=== PATIENT | female | born 2000 | race Two or more races ===

== ENCOUNTER 2021-06-25 14:24 | Emergency (ER) | payer SELFPAY ==
[~2021-06-25] VITALS: Ht 162.6 cm; Wt 74.2 kg
--- NOTE | 2021-06-25 15:16 | ED.ADGEN ---
Past Medical History Past Surgical History: No Surgical History General Adult EDM: Chief Complaint: VAGINAL BLEEDING HPI: HPI: Patient is a G2, P0 20 year old female coming in for vaginal bleeding. Patient had a positive home test about 1 week ago. States she is having bleeding, has not seen any tissue, and having suprapubic cramping. Denies any history of ovarian cyst, normally has regular periods. LMP 27. Patient has a history of a prior miscarriage at about 6 to 7 weeks gestational age. Denies any recent intercourse or vaginal discharge Review of Systems: Review of Systems: All other systems within normal limits except for as noted in the HPI Current Medications: Current Medications Medications (Trade) Dose Ordered Sig/Pako Start Time Stop Time Status Last Admin Dose Admin Acetaminophen (Tylenol) 1,000 mg 1X ONCE 06/25/21 15:45 06/25/21 15:46 DC 06/25/21 15:42 1,000 MG Allergies: Allergies: Allergies Coded Allergies Type Severity Reaction Last Updated Verified No Known Drug Allergies 06/25/21 No Physical Exam: PE: Constitutional: Well developed, well nourished, no acute distress, non-toxic appearance. [] HENT: Normocephalic, atraumatic, bilateral external ears normal, nose normal. [] Eyes: PERRLA, conjunctiva normal, no discharge. [] Neck: No rigidity, supple, no stridor. [] Cardiovascular: Regular rate and rhythm, brisk cap refill [] Lungs & Thorax: Non labored symmetric respirations, no tachypnea or respiratory distress [] Abdomen: Soft, nondistended, low suprapubic tenderness without guarding or rebound.. Skin: Warm, dry, no erythema, no rash. [] Back: Unremarkable Extremities: No deformities, range of motion grossly intact, no lower extremity edema [] Neurologic: Alert and oriented X 3, no focal deficits noted. [] Psychologic: Affect normal, judgement normal, mood normal. [] Current Patient Data: Labs: Laboratory Tests Test 06/25/21 14:38 06/25/21 15:24 Urine Collection Type Unknown Urine Color (Auto) Red Urine Turbidity Bloody Urine pH (Auto) (<5.0-8.0) Urine Specific [place] (1.000-1.030) Urine Protein (Auto) mg/dL (Negative) Urine Glucose (Auto)(UA) mg/dL (Negative) Urine Ketones (Auto) mg/dL (Negative) Urine Blood (Auto) (Negative) Urine Nitrite (Negative) Urine Bilirubin (Auto) (Negative) Urine Urobilinogen (Auto) mg/dL (Normal) Urine Leukocyte Esterase (Auto) (Negative) Urine RBC Tntc /HPF (0-2) Urine WBC 5-10 /HPF (0-4) Urine Squamous Epithelial Cells Many /LPF Urine Bacteria Moderate /HPF (0-FEW) Urine Mucus Marked /LPF White Blood Count 8.9 x10^3/uL (4.0-11.0) Red Blood Count 4.27 x10^6/uL (3.50-5.40) Hemoglobin 12.3 g/dL (12.0-15.5) Hematocrit 37.3 % (36.0-47.0) Mean Corpuscular Volume 87 fL (79-100) Mean Corpuscular Hemoglobin 29 pg (25-35) Mean Corpuscular Hemoglobin Concent 33 g/dL (31-37) Red Cell Distribution Width 13.7 % (11.5-14.5) Platelet Count 377 x10^3/uL (140-400) Neutrophils (%) (Auto) 62 % (31-73) Lymphocytes (%) (Auto) 31 % (24-48) Monocytes (%) (Auto) 7 % (0-9) Eosinophils (%) (Auto) 1 % (0-3) Basophils (%) (Auto) 0 % (0-3) Neutrophils # (Auto) 5.5 x10^3/uL (1.8-7.7) Lymphocytes # (Auto) 2.7 x10^3/uL (1.0-4.8) Monocytes # (Auto) 0.6 x10^3/uL (0.0-1.1) Eosinophils # (Auto) 0.1 x10^3/uL (0.0-0.7) Basophils # (Auto) 0.0 x10^3/uL (0.0-0.2) Maternal Serum HCG Beta Subunit 5584 mIU/mL (0-5) H Laboratory Tests 06/25/21 15:24 Microbiology 06/25/21 Wet Prep - Final, Complete Vital Signs: Vital Signs Date Time Temp Pulse Resp B/P (MAP) Pulse Ox O2 Delivery O2 Flow Rate FiO2 06/25/21 16:30 91 113/55 (74) 06/25/21 14:25 98.7 18 98 Room Air 98.7 EKG: EKG: [] Heart Score: C/O Chest Pain: No Risk Factors: Risk Factors: DM, Current or recent (<one month) smoker, HTN, HLP, family history of CAD, obesity. Risk Scores: Score 0 - 3: 2.5% MACE over next 6 weeks - Discharge Home Score 4 - 6: 20.3% MACE over next 6 weeks - Admit for Clinical Observation Score 7 - 10: 72.7% MACE over next 6 weeks - Early Invasive Strategies Radiology/Procedures: Radiology/Procedures: [facility] [address] [place] [address] IMAGING REPORT Signed PATIENT: ARSALAN NELSON ACCOUNT: [id number] : 2000 LOCATION: ER AGE: 20 SEX: F EXAM STATUS: PRE ER ORD. PHYSICIAN: ADRIANNE CALIXTO MD REASON: bleeding, 1st trimester PROCEDURE: OB <14 WKS W/TV INDICATION: Reason: bleeding, 1st trimester / Spl. Instructions: / History: COMPARISON: None. TECHNIQUE: Grayscale and color ultrasound images of the pelvis. Transabdominal and transvaginal images obtained. Transvaginal images were needed to better visualize structures that were limited on transabdominal imaging. FINDINGS: Uterus: 86 x 51 x 48 mm. Cystic structure within the endometrial stripe. Measures approximately 12 mm with some low level internal echoes. Suspected nabothian cyst. Right Ovary: 27 x 14 x 13 mm. Left Ovary: 35 x 18 x 17 mm. Vascular flow identified to bilateral ovaries. IMPRESSION: * Hypoechoic structure within the endometrial stripe which could be secondary to an early gestational sac. Recommend follow-up to ensure that there is appropriate development of a pole. There is some low level internal echoes within it but a well-defined pole with heartbeat is not seen at this time. Electronically signed by: Fabiola Madsen MD (06/25/2021 4:12 PM) The [id number] DICTATED and SIGNED BY: FABIOLA MADSEN MD DATE: 06/25/21 1603 [] Course & Med Decision Making: Course & Med Decision Making Pertinent Labs and Imaging studies reviewed. (See chart for details) RUN DATE: 06/25/21 [facility] LAB *LIVE* PAGE 1 RUN TIME: 872 Specimen Inquiry PATIENT: ERIC NELSON ACCT: [id number] LOC: [facility] U: [id number] AGE/SX: ROOM: RE06/25/[address]: ADRIANNE CALIXTO MD : 2000 BED: DIS: STATUS: GRANT MATTSON TLOC: SPEC #: [id number] EMRE: 06/25/21 STATUS: BRYNN REQ #: [id number] RECD: 06/25/21-[address]: ADRIANNE CALIXTO MD SOURCE: VAGINAL ENTR: 06/25/21-[address]: SPDES: ORDERED: WET PREP COMMENTS: Has specimen been collected/obtained? Y Procedure Result WET PREP Final YEAST NONE SEEN TRICHOMONAS NONE SEEN CLUE CELLS NONE SEEN [] Patient has prepubic pain and UA is contaminated with blood, however shows white blood cells and moderate bacteria. We will treat empirically for urinary tract infection since patient was first trimester Zhao Disclaimer: Zhao Disclaimer: This electronic medical record was generated, in whole or in part, using a voice recognition dictation system. Departure Departure Impression: Primary Impression: Vaginal bleeding in patient at less than 20 weeks gestation Additional Impression: UTI in Disposition: HOME / SELF CARE / HOMELESS Condition: STABLE Referrals: DANDRE KAN MD Patient Instructions: Pelvic Rest, Vaginal Bleeding During , First Trimester Additional Instructions: Take medications as prescribed. Return to emergency department if saturating well more than 4 pads per hour. Call Dr. Kan's office tomorrow morning at [phone] to schedule a follow appointment on Saturday for a repeat blood draw for your beta-hCG levels. Your level today 06/25 is 5,584. Scripts Cephalexin (CEPHALEXIN) 500 Mg Tablet 1 TAB PO BID for antibiotic for 5 Days, #10 TAB Prov: ADRIANNE CALIXTO MD 06/25/21 [id number]/Iron Fum/FA/Om3/Dha ( Plus-Dha Combo Pack) 1 Each Combo..pkg 1 TAB PO DAILY for vitamin for 30 Days, #30 TAB 12 Refills Prov: ADRIANNE CALIXTO MD 06/25/21 Problem Qualifiers ADRIANNE CALIXTO MD Jun 25, 2021 15:16
[2021-06-25 15:34] LABS: BASO % 0 % (0-3); EOS # 0.1 x10^3/uL (0.0-0.7); EOS % 1 % (0-3); HEMATOCRIT 37.3 % (36.0-47.0); HEMOGLOBIN 12.3 g/dL (12.0-15.5); LYMPH # 2.7 x10^3/uL (1.0-4.8); LYMPH % 31 % (24-48); MEAN CORPUSCULAR HEMOGLOBIN 29 pg (25-35); MEAN CORPUSCULAR HGB CONC 33 g/dL (31-37); MEAN CORPUSCULAR VOLUME 87 fL (79-100); MONO # 0.6 x10^3/uL (0.0-1.1); MONO % 7 % (0-9); NEUT # 5.5 x10^3/uL (1.8-7.7); NEUT % 62 % (31-73); PLATELET COUNT 377 x10^3/uL (140-400); RED BLOOD COUNT 4.27 x10^6/uL (3.50-5.40); RED CELL DISTRIBUTION WIDTH 13.7 % (11.5-14.5); WHITE BLOOD COUNT 8.9 x10^3/uL (4.0-11.0)
[2021-06-25] MEDS: ACETAMINOPHEN 500 MG TABLET PO ONE (15:42)
[2021-06-25 16:03] LABS: RBC,URINE TNTC /HPF (0-2)
[2021-06-25 16:05] LABS: BACTERIA,URINE MODERATE /HPF (0-FEW)
--- NOTE | 2021-06-25 16:14 | RAD ---
INDICATION: Reason: bleeding, 1st trimester / Spl. Instructions: / History: COMPARISON: None. TECHNIQUE: Grayscale and color ultrasound images of the pelvis. Transabdominal and transvaginal imag es obtained. Transvaginal images were needed to better visualize structures that were limited on tra nsabdominal imaging. FINDINGS: Uterus: 86 x 51 x 48 mm. Cystic structure within the endometrial stripe. Measures approximately 12 mm with some low level inte rnal echoes. Suspected nabothian cyst. Right Ovary: 27 x 14 x 13 mm. Left Ovary: 35 x 18 x 17 mm. Vascular flow identified to bilateral ovaries. IMPRESSION: * Hypoechoic structure within the endometrial stripe which could be secondary to an early gestation al sac. Recommend follow-up to ensure that there is appropriate development of a pole. There is some low level internal echoes within it but a well-defined pole with heartbeat is not seen at this time. Electronically signed by: Pradeep Leon MD (06/25/2021 4:12 PM) [id number]
[2021-06-25 17:45] VITALS: BP 110/55
[2021-06-25] MEDS ORDERED: CEPH500T PO (17:51)
[2021-06-25] MEDS ORDERED: PREN1COM15 PO (17:51)
[2021-06-27 18:23] LABS: GC PROBE Negative (Negative)
== END 2021-06-25 18:10 | disposition home or self-care (01) ==
LOC: ER 14:24
DX: O23.41 Unspecified infection of urinary tract in pregnancy, first trimester (principal); Z3A.00 Weeks of gestation of pregnancy not specified; O46.91 Antepartum hemorrhage, unspecified, first trimester
CPT/HCPCS: 36415; 76801; 76817; 81001; 84702; 85025; 86900; 86901; 87086; 87491; 87591; 99284; Q0111

== ENCOUNTER 2021-06-30 02:46 | Emergency (ER) | payer OTHER ==
[~2021-06-30] VITALS: Ht 162.6 cm; Wt 74.0 kg
[~2021-06-30 02:46] MED LIST: CEPH500T PO; PREN1COM15 PO
--- NOTE | 2021-06-30 03:18 | PHYS DOC ---
Past Medical History Past Surgical History: No Surgical History Smoking Status: Former Smoker Alcohol Use: None General Adult EDM: Chief Complaint: VAGINAL BLEEDING HPI: HPI: Patient is a 20 year old FEMALE who is A1 with LMP 2/ presents with the chief complaint of continued vaginal bleeding and pelvic cramping. Patient has had vaginal bleeding since 06/25. Patient was evaluated in ER on 06/25--- US hypoechogenicity within the endometrial stripe with beta hcg of >5000. Patient woke up at 230hrs passing blood clots and having left pelvic abdominal cramping. Review of Systems: Review of Systems: Constitutional: Denies fever or chills. [] Eyes: Denies change in visual acuity. [] HENT: Denies nasal congestion or sore throat. [] Respiratory: Denies cough or shortness of breath. [] Cardiovascular: Denies chest pain or edema. [] GI: Denies abdominal pain, nausea, vomiting, bloody stools or diarrhea. [] : Denies dysuria. [] positive vaginal bleeding positive pelvic pain Musculoskeletal: Denies back pain or joint pain. [] Integument: Denies rash. [] Neurologic: Denies headache, focal weakness or sensory changes. [] Endocrine: Denies polyuria or polydipsia. [] Lymphatic: Denies swollen glands. [] Psychiatric: Denies depression or anxiety. [] Heart Score: C/O Chest Pain: N/A Risk Factors: Risk Factors: DM, Current or recent (<one month) smoker, HTN, HLP, family history of CAD, obesity. Risk Scores: Score 0 - 3: 2.5% MACE over next 6 weeks - Discharge Home Score 4 - 6: 20.3% MACE over next 6 weeks - Admit for Clinical Observation Score 7 - 10: 72.7% MACE over next 6 weeks - Early Invasive Strategies Allergies: Allergies: Allergies Coded Allergies Type Severity Reaction Last Updated Verified No Known Drug Allergies 06/25/21 No Physical Exam: PE: Constitutional: Well developed, well nourished, no acute distress, non-toxic appearance. [] HENT: Normocephalic, atraumatic, bilateral external ears normal, oropharynx moist, no oral exudates, nose normal. [] Eyes: PERRLA, EOMI, conjunctiva normal, no discharge. [] Neck: Normal range of motion, no tenderness, supple, no stridor. [] Cardiovascular:Heart rate regular rhythm, no murmur [] Lungs & Thorax: Bilateral breath sounds clear to auscultation [] Abdomen: Bowel sounds normal, soft, no tenderness, no masses, no pulsatile masses. [] Skin: Warm, dry, no erythema, no rash. [] Back: No tenderness, no CVA tenderness. [] Extremities: No tenderness, no cyanosis, no clubbing, ROM intact, no edema. [] Neurologic: Alert and oriented X 3, normal motor function, normal sensory function, no focal deficits noted. [] Psychologic: Affect normal, judgement normal, mood normal. [] EKG: EKG: [] Radiology/Procedures: Radiology/Procedures: [] Impression: Uterus: - Size: 7.9 x 5.0 x 4.2 cm - Myometrium: Homogeneous echotexture - Endometrium: 6 mm focal hypoechogenicity within the endometrial stripe, previously 1.3 cm. No visualized pole or yolk sac. - Cervix: Unremarkable Right Ovary: - Size: 3.4 x 1.3 x 1.3 cm - Normal sonographic appearance and blood flow. Left Ovary: - Size: 2.6 x 1.5 x 1.4 cm - Normal sonographic appearance and blood flow. Pelvic Free Fluid: Absent IMPRESSION: Nonspecific 6 mm focal hypoechogenicity within the endometrial stripe, decreased in size compared to prior study. Recommend follow-up ultrasound in 10-14 days. Course & Med Decision Making: Course & Med Decision Making Pertinent Labs and Imaging studies reviewed. (See chart for details) []Patients HB stable. HCG now 200 Patient treated with tylenol for pain. Patient discussed with Dr Orantes. Patient to call office to schedule appointment. Dragon Disclaimer: [email or web address] Disclaimer: This electronic medical record was generated, in whole or in part, using a voice recognition dictation system. Departure Departure Impression: Primary Impression: Threatened Disposition: HOME / SELF CARE / HOMELESS Condition: STABLE Referrals: NO PCP (PCP) DANDRE ORANTES MD Patient Instructions: Threatened Miscarriage, Vaginal Bleeding During , First Trimester HOLLY HOLLOWAY DO Jun 30, 2021 03:18
[2021-06-30 03:32] LABS: BASO % 0 % (0-3); EOS % 0 % (0-3); HEMATOCRIT 37.2 % (36.0-47.0); HEMOGLOBIN 12.2 g/dL (12.0-15.5); LYMPH # 4.2 x10^3/uL (1.0-4.8); LYMPH % 37 % (24-48); MEAN CORPUSCULAR HEMOGLOBIN 29 pg (25-35); MEAN CORPUSCULAR HGB CONC 33 g/dL (31-37); MEAN CORPUSCULAR VOLUME 87 fL (79-100); MONO # 0.8 x10^3/uL (0.0-1.1); MONO % 7 % (0-9); NEUT # 6.3 x10^3/uL (1.8-7.7); NEUT % 55 % (31-73); PLATELET COUNT 451 x10^3/uL (140-400); RED BLOOD COUNT 4.28 x10^6/uL (3.50-5.40); RED CELL DISTRIBUTION WIDTH 13.4 % (11.5-14.5); WHITE BLOOD COUNT 11.4 x10^3/uL (4.0-11.0)
[2021-06-30 03:40] LABS: CREATININE 0.8 mg/dL (0.6-1.0); GFR 90.5; POTASSIUM 3.7 mmol/L (3.5-5.1)
[2021-06-30 03:47] LABS: ALBUMIN 4.2 g/dL (3.4-5.0); ALBUMIN/GLOBULIN RATIO 1.1 (1.0-1.7); TOTAL BILIRUBIN 0.6 mg/dL (0.2-1.0); TOTAL PROTEIN 7.9 g/dL (6.4-8.2)
--- NOTE | 2021-06-30 04:43 | RAD ---
EXAMINATION: US OB <14 WKS +TV (FIRST TRIMESTER PELVIC ULTRASOUND) CLINICAL HISTORY: Pelvic pain and vaginal bleeding. TECHNIQUE: Sonography of the pelvis was performed by transabdominal and transvaginal techniques. COMPARISON: 06/25/2021 FINDINGS: Uterus: - Size: 7.9 x 5.0 x 4.2 cm - Myometrium: Homogeneous echotexture - Endometrium: 6 mm focal hypoechogenicity within the endometrial stripe, previously 1.3 cm. No visua lized pole or yolk sac. - Cervix: Unremarkable Right Ovary: - Size: 3.4 x 1.3 x 1.3 cm - Normal sonographic appearance and blood flow. Left Ovary: - Size: 2.6 x 1.5 x 1.4 cm - Normal sonographic appearance and blood flow. Pelvic Free Fluid: Absent IMPRESSION: Nonspecific 6 mm focal hypoechogenicity within the endometrial stripe, decreased in size compared to prior study. Recommend follow-up ultrasound in 10-14 days. Electronically signed by: George Foster DO (06/30/2021 4:41 AM) KAMI
[2021-06-30 05:28] VITALS: BP 114/71
[2021-06-30] MEDS ORDERED: ACETAMINOPHEN 325 MG TABLET. PO ONE (05:30)
== END 2021-06-30 05:35 | disposition home or self-care (01) ==
LOC: ER 02:46
DX: O20.0 Threatened abortion (principal); Z3A.01 Less than 8 weeks gestation of pregnancy; Z87.891 Personal history of nicotine dependence
CPT/HCPCS: 36415; 76801; 80053; 84702; 85025; 86900; 86901; 99285-25